=== PATIENT | female | born 1945 | race Caucasian/White ===

== ENCOUNTER 2017-03-04 10:20 | Emergency (ER) | payer MEDICARE, BC ==
[2015-09-13 12:44] VITALS: BMI 25.0
[~2017-03-04 10:20] MED LIST: AMBIEN5 MG PO; BETAPACE 80 MG80 MG PO; CARDIZEM CD180 MG PO; CEFTIN500 MG PO; DILAUDID2 MG PO; ELIQUIS2.5 MG PO; MEDROL DOSE PACK4 MG PO; PROAIR HFA8.5 GM INH
[2017-03-04 11:20] LABS: APPEARANCE HAZY (CLEAR); BILIRUBIN NEGATIVE (NEGATIVE); COLOR DK YELLOW (YELLOW); GLUCOSE NEGATIVE (NEGATIVE); KETONE NEGATIVE (NEGATIVE); LEUKOCYTE ESTERASE TRACE (NEGATIVE); NITRITE NEGATIVE (NEGATIVE); PROTEIN 2+ mg/dL (NEGATIVE); UROBILINOGEN NORMAL (NORMAL)
[2017-03-04 11:21] LABS: BACTERIA FEW /hpf (NONE SEEN); EPITHELIAL CELLS 0-5 /hpf (0-5); HYALINE CAST 0-5 /lpf (NONE SEEN); MUCUS <1+ /lpf (NONE SEEN); RED CELLS - URINE 0-5 /hpf (0-5); WHITE CELLS - URINE 0-5 /hpf (0-5)
== END 2017-03-04 12:45 | disposition home or self-care (01) ==
LOC: D.ER 10:20
PROVIDERS: Emergency Medicine
DX: M54.16 Radiculopathy, lumbar region (principal); J44.9 Chronic obstructive pulmonary disease, unspecified

== ENCOUNTER → 2017-06-18 16:04 | Outpatient (CLI) | payer MEDICARE, BC ==
[2015-09-13 12:44] VITALS: BMI 25.0
== END | disposition home or self-care (01) ==
LOC: D.MAMMO 15:00
DX: Z85.3 Personal history of malignant neoplasm of breast (principal)

== ENCOUNTER 2019-10-23 07:39 | Outpatient (CLI) | payer MEDICARE, BC ==
[~2019-10-23] VITALS: Ht 172.7 cm; Wt 59.1 kg
[2019-10-23 07:59] LABS: BASOPHILS 0.2 % (0-2); EOSINOPHILS 2.8 % (0-7); HEMATOCRIT 44.9 % (36.0-48.0); HEMOGLOBIN 14.7 g/dL (12-16); IMMATURE GRANULOCYTES 0.2 % (0-5); LYMPHOCYTES 13.5 % (15-50); MCH 33.8 pg (26.0-34.0); MCHC 32.7 g/dL (31.0-37.0); MCV 103.2 fL (80.0-100.0); MEAN PLATELET VOLUME 8.9 fL (7.4-10.4); MONOCYTES 9.8 % (2-11); NEUTROPHILS 73.5 % (40-80); PLATELET COUNT 212 10x3/uL (130-400); RBC 4.35 10x6/uL (4.00-5.40); RDW 13.9 % (11.5-14.5); WBC 5.6 10x3/uL (4.8-10.8)
[2019-10-23 08:07] LABS: ANION GAP 8.8 mmol/L (8-16); CALCIUM 8.9 mg/dL (8.5-10.1); CARBON DIOXIDE 34.4 mmol/L (21.0-32.0); POTASSIUM - SERUM 4.2 mmol/L (3.5-5.1)
[2019-10-23 08:18] LABS: APTT 32.3 SECONDS (22.8-39.4); INR 1.03 (0.85-1.17); PROTIME 13.4 SECONDS (11.6-15.0)
[2019-10-23 08:44] VITALS: BP 134/87; Ht 172.7 cm; Wt 59.1 kg
--- NOTE | 2019-10-23 10:50 | NUR ---
DR ALLEN CALLED INSTRUCT DR MACARIO WANTED PT EVALUATED. ALEJANDRO STATES, "PT NEEDS TO GO THROUGH ER TO BE EVALUATED." INSTRUCT PT AND FAMILY MEMBER THAT IS WHAT NEEDS TO HAPPEN DUE TO O2 LEVEL BEING LOW AND PT IN ATRIAL FIB WITH A HR 120 TO 130'S.
--- NOTE | 2019-10-23 13:15 | NUR ---
AMBULATING UP IN ROOM ON ROOM AIR, SP02 WAS 72%. SAT BACK DOWN AND OXYGEN PLACED BACK ON AT 2LPM VIA NC, O2 SAT INCREASED TO 90-93%.
[2019-10-23 13:55] LABS: MESOTHELIALS BF 11 %; NEUT - BF 3 %
--- NOTE | 2019-10-23 14:10 | NUR ---
PT ARRIVED TO THE FLOOR AT 0800 FOR THORACENTESIS PROCEDURE IN RADIOLOGY. PT INITIAL VITAL SIGNS WERE TAKEN AND HER ROOM AIR O2 LEVEL WAS FOUND TO BE 83%. WHEN THIS NURSE ARRIVED IN THE ROOM AND READ THE STATED VS, PT'S O2 LEVEL WAS IMMEDIATELY RE-CHECKED AND FOUND TO BE 81%. PT WAS IMMEDIATELY PLACED ON 4L NC OF OXYGEN AND CONTINUOUSLY MONITORED WHILE PROCEDING WITH ADMISSION PROCESS. PT'S O2 LEVEL INCREASED TO 94% ON 4L BY 0855 AND THE OXYGEN WAS TURNED DOWN TO 2L.
--- NOTE | 2019-10-23 18:43 | NUR ---
SPOKE WITH DR. GIFFORD VIA PHONE RE;PT ADMISSION. CALLED AND LEFT MESSAGE WITH DR MACARIO OFFICE. SPEAKING WITH [employer] TO PROCURE O2 PRIOR TO PT DISCHARGE. PER DR. JONES, PT TO REPORT TO HIS OFFICE AFTER D/C HERE
== END 2019-10-23 14:00 | disposition home or self-care (01) ==
LOC: D.SP 07:39 → D.CT 10:00 → D.SP 10:00 → D.US 10:00 → D.SP 14:00
PROVIDERS: Specialist; ATTEND Family Medicine
DX: J90 Pleural effusion, not elsewhere classified (principal)

== ENCOUNTER → 2019-11-10 11:02 | Outpatient (CLI) | payer MEDICARE, BC ==
[2019-10-23 08:44] VITALS: BMI 19.8
== END | disposition home or self-care (01) ==
LOC: D.ECHO 11:00
PROVIDERS: ATTEND Family Medicine
DX: I50.9 Heart failure, unspecified (principal)

== ENCOUNTER 2020-11-26 09:42 | Emergency (ER) | payer MEDICARE, BC ==
[~2020-11-26] VITALS: Ht 172.7 cm; Wt 52.3 kg
[2020-11-26 09:50] VITALS: Ht 172.7 cm; Wt 52.3 kg
[2020-11-26] MEDS ORDERED: AMBIEN10 MG (09:54)
[2020-11-26 10:08] LABS: BASOPHILS 0.2 % (0-2); EOSINOPHILS 0.8 % (0-7); HEMATOCRIT 44.1 % (36.0-48.0); IMMATURE GRANULOCYTES 0.2 % (0-5); LYMPHOCYTE ABS# 0.54 10x3/uL (1.18-3.74); MCH 32.4 pg (26.0-34.0); MCHC 31.7 g/dL (31.0-37.0); MCV 102.1 fL (80.0-100.0); MEAN PLATELET VOLUME 9.6 fL (7.4-10.4); MONOCYTES 6.4 % (2-11); NEUTROPHIL ABS# 4.99 10x3/uL (1.56-6.13); NEUTROPHILS 83.4 % (40-80); PLATELET COUNT 199 10x3/uL (130-400); RBC 4.32 10x6/uL (4.00-5.40); RDW 13.7 % (11.5-14.5)
[2020-11-26 10:14] LABS: CALC OSMOLALITY 267 mosm/kg (275-300); CALCIUM 9.2 mg/dL (8.5-10.1); CARBON DIOXIDE 35.1 mmol/L (21.0-32.0); CHLORIDE - SERUM 95 mmol/L (98-107); CREATININE - SERUM 0.7 mg/dL (0.6-1.3); GLUCOSE 122 mg/dL (74-106); POTASSIUM - SERUM 3.9 mmol/L (3.5-5.1); SODIUM 134 mmol/L (136-145); UREA NITROGEN 10 mg/dL (7-18); eGFR NON AFRICAN AMERICAN 86 mL/min (90-120)
[2020-11-26 10:15] LABS: APTT 33.1 SECONDS (22.8-39.4); INR 1.04 (0.85-1.17); PROTIME 12.6 SECONDS (11.6-15.0)
[2020-11-26 10:29] LABS: ALBUMIN 3.6 g/dL (3.4-5.0); ALKALINE PHOSPHATASE 107 U/L (30-120); ALT (SGPT) 13 U/L (10-68); BILIRUBIN - TOTAL 0.48 mg/dL (0.2-1.3); CKMB 2.1 U/L (0.0-3.6); CREATINE KINASE 41 UL (21-215); PRO BNP 1569 pg/mL (0-450); PROTEIN - SERUM 7.4 g/dL (6.4-8.2); TROPONIN-I < 0.017 ng/mL (0.000-0.060)
[2020-11-26] MEDS ORDERED: FUROSEMIDE20 MG PO (12:09)
[2020-11-26] MEDS ORDERED: STERAPRED 5MG 65 M1 PO (12:09)
[2020-11-26] MEDS ORDERED: K-TAB10 MEQ PO (12:09)
[2020-11-26] MEDS ORDERED: LEVOFLOXACIN500 MG PO (12:10)
[2020-11-26 12:19] VITALS: BP 150/63
== END 2020-11-26 12:24 | disposition home or self-care (01) ==
LOC: D.ER 09:42
PROVIDERS: Emergency Medicine
DX: J40 Bronchitis, not specified as acute or chronic (principal); R09.89 Other specified symptoms and signs involving the circulatory and respiratory systems; J43.9 Emphysema, unspecified; Z72.0 Tobacco use

== ENCOUNTER 2021-01-29 10:11 | Inpatient (IN) | payer MEDICARE, BC ==
[~2021-01-29] VITALS: Ht 172.7 cm; Wt 51.5 kg
--- NOTE | ~2021-01-29 | CN ---
PATIENT NAME:JOJO LAMBERT MEDICAL RECORD: [id number] : 43 LOCATION:D. D.2124 ADMIT DATE: 01/29/21 ACCOUNT: [id number] CONSULTING PHYSICIAN: GREGORY NJ MD REFERRING PHYSICIAN: REMY GREEN MD DATE OF CONSULTATION: 01/30/2021 HISTORY OF PRESENT ILLNESS: The patient is a 75-year-old female with multiple medical problems including chronic atrial fibrillation, COPD, CHF, who was admitted with COPD exacerbation with CHF decompensated. I asked to evaluate from a cardiovascular standpoint. PAST MEDICAL HISTORY: Significant for; 1. CHF -- decompensated. 2. Chronic atrial fibrillation with controlled ventricular rate. 3. Chronic obstructive pulmonary disease -- exacerbation. PHYSICAL EXAMINATION: GENERAL: Frail-appearing white female sitting, in no apparent distress with a BiPAP present. VITAL SIGNS: Blood pressure 120s over 60s, pulse 80s (irregular). HEENT: Sclerae are clear; conjunctivae was pink. NECK: Supple; no appreciated JVD. HEART: Irregular rhythm and rate. II/ systolic murmur. LUNGS: Rhonchi and wheezes bilaterally. ABDOMEN: Benign. EXTREMITIES: Negative for edema. NEUROLOGIC: Nonfocal. LABORATORY DATA: White blood cell count is 4, hemoglobin and hematocrit 9.2 and 27.9, platelet count is 270. Sodium 135, potassium 4.0, BUN 26, creatinine 0.7. Troponin 0.017 (negative), BNP 1550 (elevated), albumin 3.1 (low). DIAGNOSTIC DATA: EKG; atrial fibrillation, ventricular rate is 88 beats per minute. Telemetry; atrial fibrillation with ventricular rates in the 80s. MEDICATIONS: 1. Solu-Medrol 40 mg IV q.8 hours. 2. Lasix 40 mg IV daily. 3. Diltiazem 180 mg q.12 hours p.o. 4. Lovenox 40 mg daily subQ. HOME MEDICATIONS: Additional via the records; 1. Eliquis 2.5 mg b.i.d. 2. Ambien 5 mg at bedtime p.r.n. ASSESSMENT: 1. Chronic atrial fibrillation -- controlled ventricular rate. 2. Congestive heart failure -- compensating. 3. Chronic obstructive pulmonary disease exacerbation. PLAN: Continue current medical management at this time. The patient will be scheduled for echocardiogram to reassess LV function and valvular status. CONSULT REPORT [id number] JOJO LAMBERT Further recommendations as clinically indicated. Thank you for allowing me to participate in care of this patient. TRANSINT:[id number] Voice Confirmation ID: [id number] DOCUMENT ID: [id number] GREGORY NJ MD CC: [id number] DICTATION DATE: 01/30/21 0949 TIN CUTTER: 01/30/21 1013 ADM IN [facility] [address] [place] [address]
--- NOTE | ~2021-01-29 | EC ---
PATIENT:JOJO LAMBERT DATE OF SERVICE: 01/29/21 SEX: F MEDICAL RECORD: [id number] DATE OF : 43 LOCATION:D. D.212 AGE OF PATIENT: 75 ADMISSION DATE: 01/29/21 REFERRING PHYSICIAN: INTERPRETING PHYSICIAN: GREGORY DUARTE MD ECHOCARDIOGRAM REPORT ECHO CHARGES 4 ECHO COMPLETE Date: 01/29/21 CLINICAL DIAGNOSIS: CHF ECHOCARDIOGRAPHIC MEASUREMENTS (adult normal given) AC root (d.<3.7cm) 3.4 cm LV Septum d (<1.2 cm> 1.1 cm Valve Excursion 1.9 cm LV Septum (systole) 1.6 cm Left Atria (s.<4.0cm> 3.8 cm LVPW d(<1.2cm) 1.2 cm RV (d.<2.3cm) 2.0 cm LVPW (sytole) 2.1 cm LV diastole(<5.6CM) 5.7 cm MV E-F(>70mm/sec) cm LV systole 3.4 cm LVOT Diameter 1.8 cm MV exc.(>10mm) cm Est.ejection fraction (50-75%) % DOPPLER: LVIT cm/sec A 45.0 cm/sec E 126 cm/sec LA cm/sec RVSP 77.0 mmHg LVOT 92.0 cm/sec AOP1/2T m/s Asc. Ao 133 cm/sec RVOT 63.0 cm/sec RA cm/sec PA 103 cm/sec AV Gradient Peak 7.1 mmHg AV Mean 3.9 mmHg AV Area 1.6 cm MV Gradient Peak 5.1 mmHg MV Mean 2.2 mmHg MV Area cm COMMENTS: Furniture Upholstery Mechanic: Juli HANNAHOE Air Twister Winder: 5 Dr. Duarte TAPE# PACS Pericardial Effusion N DATE OF SERVICE: 01/30/2021 CLINICAL DIAGNOSIS: CHF. INTERPRETATION: Mild global LV contractile dysfunction with ejection fraction 45% to 50%. FINDINGS: Left atrial chamber enlargement. Right atrial chamber enlargement. Right ventricular chamber size and function appears normal. Aortic valve appears normal. No aortic regurgitation/stenosis. Mild thickening of the ECHOCARDIOGRAM REPORT [id number] JOJO LAMBERT mitral valve. Mild to moderate mitral regurgitation. Tricuspid valve appears normal. Moderate tricuspid regurgitation with estimated PA pressures of 42 mmHg suggestive of mild pulmonary hypertension. Pulmonic valve appears normal. No pulmonary regurgitation noted. No pericardial effusion visualized. IMPRESSION: 1. Normal left ventricular chamber size with mild global contractile dysfunction with ejection fraction of 45% to 50%. 2. Mild to moderate mitral regurgitation. 3. Mild to moderate tricuspid regurgitation with estimated PA pressure of 42 mmHg suggestive of mild pulmonary hypertension. TRANSINT:[id number] Voice Confirmation ID: [id number] DOCUMENT ID: [id number] GREGORY DUARTE MD CC: [id number] DICTATION DATE: 01/30/21 1347 EVENT SPECIALIST PRODUCT DEMONSTRATOR: 01/30/21 2211 ADM IN [facility] [address] [id number]
[~2021-01-29 10:11] MED LIST changes: +AMBIEN10 MG; +FUROSEMIDE20 MG PO; +K-TAB10 MEQ PO; +LEVOFLOXACIN500 MG PO; +STERAPRED 5MG 65 M1 PO
--- NOTE | 2021-01-29 10:50 | NUR ---
ABG'S DONE, RESP. STATES PT NEEDS TO BE ON BI-PAP.
[2021-01-29 10:52] LABS: CALC OSMOLALITY 274 mosm/kg (275-300); CALCIUM 8.4 mg/dL (8.5-10.1); CARBON DIOXIDE 39.6 mmol/L (21.0-32.0); CHLORIDE - SERUM 96 mmol/L (98-107); CREATININE - SERUM 0.7 mg/dL (0.6-1.3); GLUCOSE 164 mg/dL (74-106); POTASSIUM - SERUM 3.8 mmol/L (3.5-5.1); SODIUM 134 mmol/L (136-145); UREA NITROGEN 20 mg/dL (7-18); eGFR NON AFRICAN AMERICAN 86 mL/min (90-120)
[2021-01-29 10:53] LABS: APTT 30.8 SECONDS (22.8-39.4); BASOPHILS 0.6 % (0-2); EOSINOPHILS 0.4 % (0-7); HEMATOCRIT 28.8 % (36.0-48.0); HEMOGLOBIN 9.2 g/dL (12-16); INR 1.15 (0.85-1.17); LYMPHOCYTES 4.9 % (15-50); MCH 30.9 pg (26.0-34.0); MCHC 32.1 g/dL (31.0-37.0); MCV 96.3 fL (80.0-100.0); MEAN PLATELET VOLUME 7.3 fL (7.4-10.4); MONOCYTES 6.4 % (2-11); NEUTROPHILS 87.7 % (40-80); PROTIME 13.6 SECONDS (11.6-15.0); RBC 2.99 10x6/uL (4.00-5.40); RDW 14.2 % (11.5-14.5)
[2021-01-29 10:59] LABS: PLATELET COUNT 324 10x3/uL (130-400)
[2021-01-29 11:09] LABS: ALBUMIN 3.1 g/dL (3.4-5.0); ALKALINE PHOSPHATASE 103 U/L (30-120); ALT (SGPT) 19 U/L (10-68); BILIRUBIN - TOTAL 0.25 mg/dL (0.2-1.3); CKMB 1.6 U/L (0.0-3.6); CREATINE KINASE 32 UL (21-215); PRO BNP 1550 pg/mL (0-450); PROTEIN - SERUM 6.6 g/dL (6.4-8.2); TROPONIN-I < 0.017 ng/mL (0.000-0.060)
--- NOTE | 2021-01-29 12:18 | NUR ---
PT REPORT ATTEMPT X1 AT THIS TIME. RN NOT AVAILABLE.
--- NOTE | 2021-01-29 13:25 | NUR ---
RECEIVED PT TO ROOM 2123 VIA WHEELCHAIR. PT A/O X4, RESP EVEN AND NONLABORED ON BIPAP AT 40%. PT ACCOMPANIED BY FAMILY. ORIENTED PT TO ROOM AND CALL LIGHT. ALSO INFORMED FAMILY REGARDING ONLY HAVING ONE VISITOR AT A TIME. WILL ASSSES PT AND START PLAN OF CARE.
[2021-01-29] MEDS ORDERED: ELIQUIS2.5 MG PO (13:29)
[2021-01-29] MEDS ORDERED: RESTORIL15 MG PO (13:37)
[2021-01-29] MEDS ORDERED: VENTOLIN HFA [SP8 GM INH (13:37)
[2021-01-29 13:48] LABS: CKMB 1.9 U/L (0.0-3.6); CREATINE KINASE 42 UL (21-215); TROPONIN-I 0.016 ng/mL (0.000-0.060)
[2021-01-29 14:07] VITALS: BMI 17.5
--- NOTE | 2021-01-29 14:39 | NUR ---
HELPED PT ON AND OFF BED [place], PT URINATED SMALL AMOUNT OF YELLOW URINE. EKG DONE AND PLACED ON CHART. PT DENIES ANY OTHER NEEDS AT THIS TIME. DAUGHTER AT BEDSIDE, CALL LIGHT IN REACH.
[2021-01-29 16:04] VITALS: BP 126/52
--- NOTE | 2021-01-29 17:31 | NUR ---
CALLED VISHNU THAPA APRN AND INFORMED HER THAT PT HAS TO ORDERS FOR SOLU MEDROL. ONE FOR 125MG Q6 AND THE OTHER ONE FOR 80MG Q8. PER VISHNU THAPA D/D[place] THE 125MG Q6.
--- NOTE | 2021-01-29 19:30 | NUR ---
RECEIVED REPORT, WILL ASSUME CARE OF PT, DENIES ANY NEEDS AT THIS TIME, DAUGHTER AT BEDSIDE, BED IS LOW, SRX2, CALL LIGHT IN REACH, WILL CONTINUE PLAN OF CARE
[2021-01-29 20:00] VITALS: BP 121/63
[2021-01-29 20:13] LABS: CKMB 1.7 U/L (0.0-3.6); CREATINE KINASE 33 UL (21-215)
[2021-01-29 20:14] LABS: TROPONIN-I < 0.017 ng/mL (0.000-0.060)
--- NOTE | 2021-01-29 21:51 | NUR ---
RT PLACED PT ON BIPAP
--- NOTE | 2021-01-29 23:02 | NUR ---
CALLED RT TO ADJUST BIPAP
[2021-01-30 03:24] LABS: CKMB 1.4 U/L (0.0-3.6); CREATINE KINASE 31 UL (21-215); TROPONIN-I < 0.017 ng/mL (0.000-0.060)
--- NOTE | 2021-01-30 03:29 | NUR ---
I have reviewed this patient and I concur with the Shift Assessment completed by the Licensed Practical Nurse today this shift
[2021-01-30 06:29] LABS: BASOPHILS 0.1 % (0-2); EOSINOPHILS 0 % (0-7); HEMATOCRIT 27.9 % (36.0-48.0); HEMOGLOBIN 9.2 g/dL (12-16); LYMPHOCYTES 5.5 % (15-50); MCHC 33.1 g/dL (31.0-37.0); MONOCYTES 2.2 % (2-11); NEUTROPHILS 92.2 % (40-80); PLATELET COUNT 270 10x3/uL (130-400); RBC 2.98 10x6/uL (4.00-5.40); RDW 14.1 % (11.5-14.5)
[2021-01-30 06:31] LABS: MCV 93.8 fL (80.0-100.0)
[2021-01-30 07:04] LABS: ALBUMIN 3.1 g/dL (3.4-5.0); ALKALINE PHOSPHATASE 90 U/L (30-120); ALT (SGPT) 17 U/L (10-68); CALCIUM 8.8 mg/dL (8.5-10.1); CHLORIDE - SERUM 94 mmol/L (98-107); CREATININE - SERUM 0.7 mg/dL (0.6-1.3); GLUCOSE 135 mg/dL (74-106); PROTEIN - SERUM 6.7 g/dL (6.4-8.2); SODIUM 135 mmol/L (136-145); eGFR NON AFRICAN AMERICAN 86 mL/min (90-120)
[2021-01-30 07:52] LABS: CALC OSMOLALITY 276 mosm/kg (275-300); UREA NITROGEN 26 mg/dL (7-18)
[2021-01-30 07:55] LABS: CARBON DIOXIDE 40.5 mmol/L (21.0-32.0)
[2021-01-30 08:13] VITALS: BP 112/50
--- NOTE | 2021-01-30 09:14 | NUR ---
AM MEDS GIVEN AT THIS TIME. PT HAD ALREADY TAKEN HER BIPAP OFF, PT AND FAMILY DO NOT SEEM TO UNDERSTAND THAT SHE NEEDS TO WEAR HER BIPAP CONTINOUSLY. RATIONAL EXPLAINED FOR WEARING BIPAP. PLACED BIPAP BACK ON. PT DENIES ANY OTHER NEEDS AT THIS TIME. CALL LIGHT IN REACH, AT BEDSIDE, WILL CONTINUE PLAN OF CARE.
--- NOTE | 2021-01-30 10:49 | NUR ---
UPDATED PT'S DAUGHTER ON PLAN OF CARE AND PT'S CONDITION.
[2021-01-30 12:00] VITALS: BP 124/59
--- NOTE | 2021-01-30 15:18 | NUR ---
PT KEEPS MESSING WITH HER BIPAP, THEREFOR BIPAP KEEPS ALARMING. INSTRUCTED PT MULTIPLE TIMES TO NO MESS WITH BIPAP. PT VERBALIZES UNDERSTANDING BUT AFTER NURSE LEAVES ROOM, PT KEEPS MESSING WITH BIPAP. MADE RESPIRATORY AWARE OF ISSUE.
[2021-01-30 16:00] VITALS: BP 125/68
--- NOTE | 2021-01-30 19:26 | NUR ---
RECEIVED REPORT, WILL ASSUME CARE OF PT, HAS BIPAP ON, FAMILY AT BEDSIDE, BED IS LOW, SRX2, CALL LIGHT IN REACH, WILL CONTINUE PLAN OF CARE
[2021-01-30 20:00] VITALS: BP 180/54
[2021-01-30] MEDS ORDERED: ADVIL200 MG (22:20)
[2021-01-31 00:13] VITALS: BP 137/68
[2021-01-31 04:00] VITALS: BP 141/66
[2021-01-31 06:46] LABS: BASOPHILS 0 % (0-2); EOSINOPHILS 0 % (0-7); HEMATOCRIT 26.6 % (36.0-48.0); HEMOGLOBIN 8.9 g/dL (12-16); LYMPHOCYTES 2.2 % (15-50); MCHC 33.6 g/dL (31.0-37.0); MCV 92.5 fL (80.0-100.0); MEAN PLATELET VOLUME 7.1 fL (7.4-10.4); MONOCYTES 3.3 % (2-11); NEUTROPHILS 94.5 % (40-80); PLATELET COUNT 291 10x3/uL (130-400); RBC 2.87 10x6/uL (4.00-5.40); RDW 14.6 % (11.5-14.5)
[2021-01-31 07:08] LABS: ALKALINE PHOSPHATASE 76 U/L (30-120); ALT (SGPT) 13 U/L (10-68); BILIRUBIN - TOTAL 0.36 mg/dL (0.2-1.3); CALC OSMOLALITY 275 mosm/kg (275-300); CALCIUM 8.8 mg/dL (8.5-10.1); CARBON DIOXIDE 39.8 mmol/L (21.0-32.0); CHLORIDE - SERUM 91 mmol/L (98-107); CREATININE - SERUM 0.6 mg/dL (0.6-1.3); GLUCOSE 135 mg/dL (74-106); POTASSIUM - SERUM 3.5 mmol/L (3.5-5.1); PROTEIN - SERUM 6.4 g/dL (6.4-8.2); SODIUM 134 mmol/L (136-145); UREA NITROGEN 28 mg/dL (7-18); eGFR NON AFRICAN AMERICAN > 90 mL/min (90-120)
[2021-01-31 07:22] LABS: WBC 7.8 10x3/uL (4.8-10.8)
--- NOTE | 2021-01-31 08:34 | NUR ---
AM MEDS GIVEN AT THIS TIME. ALSO HELPED PT TO BATHROOM AND BACK TO BED. PT A/O X4, RESP A LITTLE LABORED ON 12HF. PT TO GO BACK ON BIPAP ONCE DONE WITH BREAKFAST. ALL NEEDS MET, CALL LIGHT IN REACH, WILL CONTINUE PLAN OF CARE.
[2021-01-31 09:00] VITALS: BP 133/58
[2021-01-31 12:50] VITALS: BP 122/52
[2021-01-31 14:12] VITALS: Ht 172.7 cm; Wt 51.5 kg
[2021-01-31 16:18] VITALS: BP 130/53
[2021-01-31 20:00] VITALS: BP 134/61
[2021-02-01] VITALS: BP 130/70
--- NOTE | 2021-02-01 03:17 | NUR ---
I have reviewed this patient and I concur with the Shift Assessment completed by the Licensed Practical Nurse today this shift.
[2021-02-01 04:00] VITALS: BP 135/70
[2021-02-01 06:28] LABS: INR 0.99 (0.85-1.17); PROTIME 12.1 SECONDS (11.6-15.0)
[2021-02-01 06:33] LABS: ALKALINE PHOSPHATASE 76 U/L (30-120); ALT (SGPT) 16 U/L (10-68); BILIRUBIN - TOTAL 0.28 mg/dL (0.2-1.3); CALC OSMOLALITY 275 mosm/kg (275-300); CALCIUM 8.6 mg/dL (8.5-10.1); CHLORIDE - SERUM 93 mmol/L (98-107); CREATININE - SERUM 0.6 mg/dL (0.6-1.3); GLUCOSE 136 mg/dL (74-106); LDH 130 U/L (81-234); POTASSIUM - SERUM 3.3 mmol/L (3.5-5.1); PROTEIN - SERUM 6.4 g/dL (6.4-8.2); SODIUM 135 mmol/L (136-145); UREA NITROGEN 23 mg/dL (7-18); eGFR NON AFRICAN AMERICAN > 90 mL/min (90-120)
[2021-02-01 06:34] LABS: BASOPHILS 0 % (0-2); EOSINOPHILS 0 % (0-7); HEMATOCRIT 27.4 % (36.0-48.0); HEMOGLOBIN 9.1 g/dL (12-16); LYMPHOCYTES 1.3 % (15-50); MCH 31.1 pg (26.0-34.0); MCHC 33.2 g/dL (31.0-37.0); MCV 93.6 fL (80.0-100.0); MEAN PLATELET VOLUME 6.9 fL (7.4-10.4); MONOCYTES 3.8 % (2-11); NEUTROPHILS 94.9 % (40-80); PLATELET COUNT 282 10x3/uL (130-400); RBC 2.93 10x6/uL (4.00-5.40); RDW 14.6 % (11.5-14.5); WBC 7.1 10x3/uL (4.8-10.8)
[2021-02-01 06:36] LABS: CARBON DIOXIDE 42.9 mmol/L (21.0-32.0)
--- NOTE | 2021-02-01 08:00 | NUR ---
LEAVING FOR CT THORACENTESIS BY BED.
[2021-02-01 08:14] VITALS: BP 126/54
--- NOTE | 2021-02-01 09:10 | NUR ---
BACK FROM CT. VS WNL. RIGHT BACK DRSG CDI. WILL MONITOR.
[2021-02-01 11:37] VITALS: BP 128/63
[2021-02-01 15:57] LABS: PROTEIN - BODY FLUID 3.3 G/DL
[2021-02-01 16:00] VITALS: BP 109/58
[2021-02-01 18:40] LABS: MACROPHAGES BF 36 %; MESOTHELIALS BF 9 %; NEUT - BF 22 %
[2021-02-01 20:00] VITALS: BP 128/52
[2021-02-02] VITALS: BP 120/51
--- NOTE | 2021-02-02 00:53 | NUR ---
I have reviewed this patient and I concur with the Shift Assessment completed by the Licensed Practical Nurse today this shift.
--- NOTE | 2021-02-02 01:00 | NUR ---
I have reviewed this patient and I concur with the Shift Assessment completed by the Licensed Practical Nurse today this shift.
--- NOTE | 2021-02-02 01:52 | NUR ---
RESTING WITH EYES CLOSED. RESPERATIONS EVEN, NO S/S DISTRESS NOTED.
[2021-02-02 04:00] VITALS: BP 128/69
[2021-02-02 06:13] LABS: BASOPHILS 0.1 % (0-2); EOSINOPHILS 0 % (0-7); HEMATOCRIT 25.9 % (36.0-48.0); HEMOGLOBIN 8.7 g/dL (12-16); MCH 31.4 pg (26.0-34.0); MCHC 33.6 g/dL (31.0-37.0); MCV 93.5 fL (80.0-100.0); MEAN PLATELET VOLUME 6.9 fL (7.4-10.4); MONOCYTES 3.9 % (2-11); PLATELET COUNT 248 10x3/uL (130-400); RBC 2.77 10x6/uL (4.00-5.40); RDW 14.5 % (11.5-14.5)
[2021-02-02 06:43] LABS: ALBUMIN 2.8 g/dL (3.4-5.0); ALKALINE PHOSPHATASE 81 U/L (30-120); ALT (SGPT) 20 U/L (10-68); BILIRUBIN - TOTAL 0.19 mg/dL (0.2-1.3); CALC OSMOLALITY 279 mosm/kg (275-300); CALCIUM 8.5 mg/dL (8.5-10.1); CHLORIDE - SERUM 95 mmol/L (98-107); CREATININE - SERUM 0.6 mg/dL (0.6-1.3); GLUCOSE 144 mg/dL (74-106); SODIUM 136 mmol/L (136-145); UREA NITROGEN 27 mg/dL (7-18); eGFR NON AFRICAN AMERICAN > 90 mL/min (90-120)
[2021-02-02 07:29] LABS: POTASSIUM - SERUM 3.9 mmol/L (3.5-5.1)
[2021-02-02 07:32] LABS: CARBON DIOXIDE 42.3 mmol/L (21.0-32.0)
[2021-02-02 07:33] VITALS: BP 119/57
[2021-02-02 10:22] VITALS: BP 117/56
[2021-02-02 13:13] LABS: ACID FAST SMEAR Negative (()); AFB SPECIMEN PROCESSING Concentration (())
[2021-02-02 14:11] LABS: FUNGUS STAIN Final report (())
[2021-02-02 15:15] VITALS: BP 135/62
[2021-02-02 20:00] VITALS: BP 129/57
[2021-02-03] VITALS: BP 133/62
--- NOTE | 2021-02-03 00:23 | NUR ---
RESTING WITH EYES CLOSED, NO S/S DISTRESS NOTED.
--- NOTE | 2021-02-03 01:32 | NUR ---
I have reviewed this patient and I concur with the Shift Assessment completed by the Licensed Practical Nurse today this shift.
[2021-02-03 05:38] VITALS: BP 132/64
[2021-02-03 07:23] LABS: BASOPHILS 0.1 % (0-2); EOSINOPHILS 0 % (0-7); HEMOGLOBIN 9.4 g/dL (12-16); LYMPHOCYTES 1.1 % (15-50); MCH 30.1 pg (26.0-34.0); MCHC 32.4 g/dL (31.0-37.0); MCV 92.8 fL (80.0-100.0); MONOCYTES 4.6 % (2-11); NEUTROPHILS 94.2 % (40-80); PLATELET COUNT 267 10x3/uL (130-400); RBC 3.13 10x6/uL (4.00-5.40); RDW 14.7 % (11.5-14.5); WBC 6.8 10x3/uL (4.8-10.8)
[2021-02-03 08:03] LABS: ALBUMIN 2.7 g/dL (3.4-5.0); ALKALINE PHOSPHATASE 82 U/L (30-120); BILIRUBIN - TOTAL 0.19 mg/dL (0.2-1.3); CALC OSMOLALITY 278 mosm/kg (275-300); CALCIUM 8.4 mg/dL (8.5-10.1); CHLORIDE - SERUM 93 mmol/L (98-107); CREATININE - SERUM 0.6 mg/dL (0.6-1.3); GLUCOSE 137 mg/dL (74-106); POTASSIUM - SERUM 3.8 mmol/L (3.5-5.1); PROTEIN - SERUM 5.6 g/dL (6.4-8.2); SODIUM 136 mmol/L (136-145); UREA NITROGEN 26 mg/dL (7-18); eGFR NON AFRICAN AMERICAN > 90 mL/min (90-120)
[2021-02-03 08:27] LABS: ALT (SGPT) 28 U/L (10-68)
[2021-02-03 08:33] LABS: CARBON DIOXIDE 42.6 mmol/L (21.0-32.0)
[2021-02-03] MEDS ORDERED: IPRAT-ALBUT 0.5-3 ML INH ×2 (10:02)
[2021-02-03] MEDS ORDERED: NICODERM CQ1 EAC3 TRANSDERM (10:02)
[2021-02-03] MEDS ORDERED: LASIX40 MG PO (10:04)
[2021-02-03] MEDS ORDERED: PULMICORT0.5 MG/21 UPD (10:04)
[2021-02-03] MEDS ORDERED: PREDNISONE10 MG PO (10:05)
[2021-02-03 11:00] VITALS: BP 132/60
--- NOTE | 2021-02-03 11:53 | NUR ---
IV AND TELEMETRY DCD. DC PLANS GIVEN. UNDERSTANDING VOICED. ESCORTED TO CAR BY W/C.
== END 2021-02-03 11:58 | disposition home or self-care (01) | DRG 291 ==
LOC: D.ER 10:11 → D.M2 11:13
PROVIDERS: Family Medicine; Internal Medicine Pulmonary Disease; Radiology Vascular & Interventional Radiology; ADMIT Emergency Medicine; ATTEND Emergency Medicine
PROC: 0W993ZZ Drainage of Right Pleural Cavity, Percutaneous Approach (ICD-10-PCS; principal; 2021-02-01 08:34)
DX: I11.0 Hypertensive heart disease with heart failure (principal); J96.02 Acute respiratory failure with hypercapnia; E43 Unspecified severe protein-calorie malnutrition; J96.11 Chronic respiratory failure with hypoxia; Z68.1 Body mass index [BMI] 19.9 or less, adult; I50.23 Acute on chronic systolic (congestive) heart failure; I48.91 Unspecified atrial fibrillation; J43.2 Centrilobular emphysema; I25.10 Atherosclerotic heart disease of native coronary artery without angina pectoris; D64.9 Anemia, unspecified; D35.02 Benign neoplasm of left adrenal gland